=== PATIENT | female | born 1960 | race Caucasian/White ===

== ENCOUNTER 2025-01-23 14:50 | Emergency (ER) | payer OTHER ==
[2025-01-23 15:09] LABS: BASOPHILS ABSOLUTE AUTO 0.0 x10-3/uL (0.0-0.1); BASOPHILS PERCENT AUTO 0.4 % (0.2-1.5); EOSINOPHILS ABSOLUTE AUTO 0.0 x10-3/uL (0.0-0.8); EOSINOPHILS PERCENT AUTO 0.0 % (0.6-8.1); LYMPHOCYTES ABSOLUTE AUTO 0.8 x10-3/uL (1.0-4.4); LYMPHOCYTES PERCENT AUTO 8.4 % (18.4-52.1); MEAN PLATELET VOLUME 7.5 fL (7.1-12.4); MONOCYTES ABSOLUTE AUTO 0.6 x10-3/uL (0.3-1.0); MONOCYTES PERCENT AUTO 6.8 % (4.4-15.7); NEUTROPHILS ABSOLUTE AUTO 7.9 x10-3/uL (1.5-6.3); NEUTROPHILS PERCENT AUTO 84.4 % (30.8-76.2); PLATELET COUNT,PLT 252 x10(3)uL (151-488); RED BLOOD CELL COUNT 3.49 x10(6)uL (3.60-5.20); RED CELL DISTRIBUTION WIDTH 13.3 % (12.3-16.5); WHITE BLOOD CELL COUNT,WBC 9.3 x10-3/uL (3.0-10.3)
[2025-01-23 15:19] LABS: A/G RATIO 1.3; ALANINE AMINOTRANSFERASE,ALT 21 U/L (12-36); ASPARTATE AMNIOTRANSFERASE,AST 15 IU/L (5-25); BILIRUBIN TOTAL 0.5 mg/dL (0.1-1.3); BLOOD UREA NITROGEN,BUN 13 mg/dL (7-18); CARBON DIOXIDE,CO2 23 mmol/L (21-32); CREATININE 1.0 mg/dL (0.55-1.02); ESTIMATED GFR 63 mL/min (>60); GLUCOSE RANDOM 161 mg/dL (80-116); PROTEIN TOTAL,TP 6.3 g/dL (6.0-8.0)
[2025-01-23 15:23] LABS: CHLORIDE,CL 97 mmol/L (100-110); POTASSIUM,K 3.8 mmol/L (3.5-5.3); SODIUM,NA 131 mmol/L (135-145)
[2025-01-23] MEDS: Ondansetron 4 MG/2 ML SDV IVPUSH ONE (15:29)
[2025-01-23] MEDS: HYDROmorphone 2 MG/ML SDV IVPUSH ONE ×2 (16:32→18:06)
[2025-01-23 17:20] LABS: GLUCOSE,URINE NORMAL (NORMAL); OCCULT BLOOD,URINE NEGATIVE (NEGATIVE)
[2025-01-23 17:23] LABS: APPEARANCE,URINE CLEAR (CLEAR)
[2025-01-23] MEDS: metroNIDAZOLE/Normal Saline 500 MG in Premix Bag 1 BAG IV ONE (19:27)
== END 2025-01-23 20:35 ==
LOC: FB.ED 14:50
DX: K35.80 Unspecified acute appendicitis (principal); Z91.041 Radiographic dye allergy status; Z79.890 Hormone replacement therapy; Z79.899 Other long term (current) drug therapy
CPT/HCPCS: 36415; 51701; 71045; 74176; 80053; 81003; 84484; 85025; 93005; 93010; 96361; 96365; 96375; 96376; 99285; A4353; J0696; J1171; J1836; J2405; J7030